=== PATIENT | male | born 1955 | race Caucasian/White ===

== ENCOUNTER 2021-10-02 21:59 | Emergency (ER) | payer OTHER ==
[2021-10-02] MEDS ORDERED: BABY ASPIRIN 81 MG CHEW ONE (22:27)
[2021-10-02] MEDS: BABY ASPIRIN 81 MG CHEW PO ONE (22:28)
--- NOTE | 2021-10-02 22:32 | ERPHSYRPT ---
- History of Present Illness Source: patient Exam Limitations: other Patient Subjective Stated Complaint: pt states he has been feeling like his heart was beating very fast. states when family checked it at home, it was 130. states he did get some bad news today and states could be from anxiety. Triage Nursing Assessment: pt alert and oriented, answers questions approp. pt ambulates into room without diff. steady gait noted. skin warm and dry. respirations nonlabored. lungs cta bilat. heart rate 80 on monitor with occasional pac's noted. Physician History: 65 yo wm w h/o CHF/HTN/Hyperlipidemia/1ppd smoker presents w tachycardia/mid-sternal chest pressure beginning at 19:00. Pt is pain free at presents, and at max was 2-3. It did not radiate. He states that he was mildly dyspneic wo N/V/diaphoresis. Pt has a mild cough wo coryza/fever. He saw Dr. Ford on 09/29/21 and was started on steroids. Timing/Duration: other (19:00) Quality: pressure Location: substernal Chest Pain Radiation: no radiation Severity of Pain-Max: mild Severity of Pain-Current: none Modifying Factors: Improves With: nothing Nitro Today/Relief: no nitro taken today Aspirin Treatment Today: no aspirin today Associated Symptoms: shortness of breath, cough, No nausea, No vomiting, No abdominal pain, No heartburn, No diaphoresis, No chills, No chest pain, No fever, No headaches, No loss of appetite, No malaise, No rash, No syncope, No seizure, No weakness Allergies/Adverse Reactions: No Known Drug Allergies Allergy (Verified 04/22/15 15:30) Home Medications: Amlodipine/Benzapril 5/10 mg [Lotrel 5/10 MG] 1 cap PO HS 10/02/21 [History] Atorvastatin Calcium [Lipitor 20MG Tablet] 20 mg PO HS 10/02/21 [History] Carvedilol [Coreg] 25 mg PO HS 10/02/21 [History] Hx Tetanus, Diphtheria Vaccination/Date Given: Yes Hx Influenza Vaccination/Date Given: Yes Hx Pneumococcal Vaccination/Date Given: No Immunizations Up to Date: Yes Travel Risk - International Travel Have you traveled outside of the country in past 3 weeks: No - Coronavirus Screening Are you exhibiting any of the following symptoms?: No Close contact with a COVID-19 positive Pt in past 14-21 Days: No - Vaccine Status Have you recieved a Covid-19 vaccination: Yes [employer]: [employer] - Vaccination Dates Date of 2cond Vaccination (if applicable): 2020 - Review of Systems Constitutional: No Symptoms Eyes: No Symptoms Ears, Nose, & Throat: No Symptoms Respiratory: No Symptoms, Cough, Dyspnea Cardiac: No Symptoms, Chest Pain, Palpitations Abdominal/Gastrointestinal: No Symptoms Genitourinary Symptoms: No Symptoms Musculoskeletal: No Symptoms Skin: No Symptoms Neurological: No Symptoms Psychological: No Symptoms Endocrine: No Symptoms Hematologic/Lymphatic: No Symptoms Immunological/Allergic: No Symptoms - Past Medical History Pertinent Past Medical History: Yes Neurological History: No Pertinent History, TIA ENT History: No Pertinent History Cardiac History: High Cholesterol, Hypertension Respiratory History: COPD Endocrine Medical History: No Pertinent History Musculoskeletal History: No Pertinent History GI Medical History: Diverticulitis, Other History: No Pertinent History Psycho-Social History: No Pertinent History Male Reproductive Disorders: No Pertinent History Other Medical History: DIVERTICULITIS - Past Surgical History Past Surgical History: Yes Neuro Surgical History: No Pertinent History Cardiac: No Pertinent History Respiratory: No Pertinent History Gastrointestinal: Appendectomy, Cholecystectomy Genitourinary: No Pertinent History Musculoskeletal: Orthopedic Surgery Male Surgical History: No Pertinent History Other Surgical History: LEFT KNEE SURGERY - Social History Smoking Status: Current every day smoker How long have you smoked: 50 yrs Exposure to second hand smoke: Yes Drug Use: none Patient Lives Alone: No Significant Family History: no pertinent family hx - Nursing Vital Signs Nursing Vital Signs: Initial Vital Signs Temperature 97.3 F 10/02/21 22:01 Pulse Rate 76 10/02/21 22:01 Respiratory Rate 18 10/02/21 22:01 Blood Pressure 172/110 10/02/21 22:01 O2 Sat by Pulse Oximetry 99 10/02/21 22:01 Pain Scale Pain Intensity 0 Hypertensive - Physical Exam General Appearance: no apparent distress Eye Exam: PERRL/EOMI, eyes nml inspection Ears, Nose, Throat Exam: normal ENT inspection, TMs normal, pharynx normal, moist mucous membranes Neck Exam: normal inspection, non-tender Respiratory Exam: airway intact, wheezing (Scattered) Cardiovascular Exam: regular rate/rhythm, normal heart sounds, normal peripheral pulses, capillary refill <2 sec, No murmur Gastrointestinal/Abdomen Exam: soft, normal bowel sounds, No tenderness Back Exam: normal inspection, normal range of motion Extremity Exam: normal inspection, normal range of motion Neurologic Exam: alert, oriented x 3, cooperative, personal companion II-XII nml as tested, normal mood/affect, sensation nml Skin Exam: normal color, warm, dry Lymphatic Exam: No adenopathy SpO2 Interpretation: normal SpO2: 99 O2 Delivery: Room Air - Course Nursing assessment & vital signs reviewed: Yes EKG Interpreted by Me: RATE (NSR/R73/Normal QT-QTc/No acute ST changes/Possible incomplete RBBB/EKG#2 sinus shakira/Prolonged QT/IRBBB/No acute ST changes) - Radiology Exams Chest X-ray Interpretation: Interpreted by me (COPD, nothing acute) Ordered Tests: Active Orders 24 hr Category Date Time Status Dumpcart Driver STAT Care 10/02/21 22:27 Completed EKG-ER Only STAT Care 10/02/21 22:24 Completed EKG-ER Only STAT Care 10/03/21 04:04 Completed IV Insertion STAT Care 10/02/21 22:24 Completed CHEST 1 VIEW (PORTABLE) Stat Exams 10/02/21 22:25 Taken CBC W DIFF Stat Lab 10/02/21 22:30 Completed CMP Stat Lab 10/02/21 22:30 Completed Manual Differential NC Stat Lab 10/02/21 22:30 Completed NT PRO BNP Stat Lab 10/02/21 22:30 Completed PROTIME WITH INR Stat Lab 10/02/21 22:30 Completed PTT Stat Lab 10/02/21 22:30 Completed TROPONIN Q3H Lab 10/02/21 22:30 Completed TROPONIN Q3H Lab 10/03/21 00:57 Completed TROPONIN Q3H Lab 10/03/21 02:46 Completed TROPONIN Q3H Lab 10/03/21 07:30 Completed TROPONIN Q3H Lab 10/03/21 10:30 Ordered Respiratory Therapy Assessment DAILY RT 10/02/21 22:39 Completed Medication Summary Discontinued Medications Generic Name Dose Route Start Last Admin Trade Name Freq PRN Reason Stop Dose Admin Albuterol/Ipratropium 3 ml 10/02/21 22:26 10/02/21 22:40 Ipratropium/Albuterol Sulfate 3 Ml Ampul.Neb IH 10/02/21 22:27 3 ml STAT ONE Administration Albuterol/Ipratropium Confirm 10/02/21 22:38 Ipratropium/Albuterol Sulfate 3 Ml Ampul.Neb Administered 10/02/21 22:39 Dose 3 ml IH .STK-MED ONE Aspirin 324 mg 10/02/21 22:27 10/02/21 22:28 Aspirin 81 Mg Tab.Chew PO 10/02/21 22:28 324 mg STAT ONE Administration Aspirin Confirm 10/02/21 22:27 Aspirin 81 Mg Tab.Chew Administered 10/02/21 22:28 Dose 324 mg .ROUTE .STK-MED ONE Lab/Rad Data: Laboratory Result Diagrams 10/02/21 22:30 10/02/21 22:30 Laboratory Results 10/03/21 10/03/21 10/03/21 Range/Units 07:30 02:46 00:57 WBC (4.0-10.5) K/mm3 RBC (4.1-5.6) M/mm3 Hgb (12.5-18.0) gm/dl Hct (42-50) % MCV (78-100) fl MCH (26-32) pg MCHC (32-36) g/dl RDW (11.5-14.0) % Plt Count (150-450) K/mm3 MPV (7.5-11.0) fl Segmented Neutrophils (36.-66.) % Lymphocytes (Manual) (24-44) % Monocytes (Manual) (0.0-12.0) % Eosinophils (Manual) (0.00-3.0) % Platelet Estimate (NORMAL) RBC Morphology PT (9.4-12.5) SECONDS INR (0.8-3.0) APTT (25.1-36.5) SECONDS Sodium (137-145) mmol/L Potassium (3.5-5.1) mmol/L Chloride (98-107) mmol/L Carbon Dioxide (22-30) mmol/L Anion Gap (5-15) MEQ/L BUN (9-20) mg/dL Creatinine (0.66-1.25) mg/dL Estimated GFR ML/MIN Glucose (74-106) mg/dL Calcium (8.4-10.2) mg/dL Total Bilirubin (0.2-1.3) mg/dL AST (17-59) U/L ALT (0-50) U/L Alkaline Phosphatase (38-126) U/L Troponin I 0.035 H 0.036 H* 0.033 (0.000-0.034) ng/mL NT-Pro-B Natriuret Pep (0-900) pg/mL Serum Total Protein (6.3-8.2) g/dL Albumin (3.5-5.0) g/dL Influenza Type A Ag (NEGATIVE) Influenza Type B Ag (NEGATIVE) RSV (PCR) (Negative) SARS-CoV-2 (PCR) (NEGATIVE) 10/02/21 10/02/21 10/02/21 Range/Units 23:08 22:30 22:30 WBC (4.0-10.5) K/mm3 RBC (4.1-5.6) M/mm3 Hgb (12.5-18.0) gm/dl Hct (42-50) % MCV (78-100) fl MCH (26-32) pg MCHC (32-36) g/dl RDW (11.5-14.0) % Plt Count (150-450) K/mm3 MPV (7.5-11.0) fl Segmented Neutrophils (36.-66.) % Lymphocytes (Manual) (24-44) % Monocytes (Manual) (0.0-12.0) % Eosinophils (Manual) (0.00-3.0) % Platelet Estimate (NORMAL) RBC Morphology PT 12.9 H (9.4-12.5) SECONDS INR 1.09 (0.8-3.0) APTT 31.3 (25.1-36.5) SECONDS Sodium (137-145) mmol/L Potassium (3.5-5.1) mmol/L Chloride (98-107) mmol/L Carbon Dioxide (22-30) mmol/L Anion Gap (5-15) MEQ/L BUN (9-20) mg/dL Creatinine (0.66-1.25) mg/dL Estimated GFR ML/MIN Glucose (74-106) mg/dL Calcium (8.4-10.2) mg/dL Total Bilirubin (0.2-1.3) mg/dL AST (17-59) U/L ALT (0-50) U/L Alkaline Phosphatase (38-126) U/L Troponin I 0.018 (0.000-0.034) ng/mL NT-Pro-B Natriuret Pep (0-900) pg/mL Serum Total Protein (6.3-8.2) g/dL Albumin (3.5-5.0) g/dL Influenza Type A Ag NEGATIVE (NEGATIVE) Influenza Type B Ag NEGATIVE (NEGATIVE) RSV (PCR) NEGATIVE (Negative) SARS-CoV-2 (PCR) NEGATIVE (NEGATIVE) 10/02/21 10/02/21 Range/Units 22:30 22:30 WBC 12.8 H (4.0-10.5) K/mm3 RBC 5.20 (4.1-5.6) M/mm3 Hgb 14.6 (12.5-18.0) gm/dl Hct 44.2 (42-50) % MCV 85.0 (78-100) fl MCH 28.1 (26-32) pg MCHC 33.0 (32-36) g/dl RDW 16.1 H (11.5-14.0) % Plt Count 319 (150-450) K/mm3 MPV 9.6 (7.5-11.0) fl Segmented Neutrophils 68 H (36.-66.) % Lymphocytes (Manual) 26 (24-44) % Monocytes (Manual) 5 (0.0-12.0) % Eosinophils (Manual) 1 (0.00-3.0) % Platelet Estimate NORMAL (NORMAL) RBC Morphology NORMAL PT (9.4-12.5) SECONDS INR (0.8-3.0) APTT (25.1-36.5) SECONDS Sodium 137 (137-145) mmol/L Potassium 3.7 (3.5-5.1) mmol/L Chloride 99 (98-107) mmol/L Carbon Dioxide 28 (22-30) mmol/L Anion Gap 13.4 (5-15) MEQ/L BUN 27 H (9-20) mg/dL Creatinine 0.85 (0.66-1.25) mg/dL Estimated GFR > 60.0 ML/MIN Glucose 147 H (74-106) mg/dL Calcium 9.1 (8.4-10.2) mg/dL Total Bilirubin 0.70 (0.2-1.3) mg/dL AST 26 (17-59) U/L ALT 23 (0-50) U/L Alkaline Phosphatase 122 (38-126) U/L Troponin I (0.000-0.034) ng/mL NT-Pro-B Natriuret Pep 535 (0-900) pg/mL Serum Total Protein 7.6 (6.3-8.2) g/dL Albumin 4.3 (3.5-5.0) g/dL Influenza Type A Ag (NEGATIVE) Influenza Type B Ag (NEGATIVE) RSV (PCR) (Negative) SARS-CoV-2 (PCR) (NEGATIVE) - Progress Progress Note: 10/03/21 05:26 Aspirin 324mg po 10/03/21 05:27 Duoneb x1 Pt wo chest pain/dyspnea/EKG changes during stay Discussed w pt/ about observation admit due to marginally elevated troponin. Pt did not want to be admitted at this time and was going to leave AMA, so that he could visit grandson in [place]. Since pt would most likely leave AMA, I persuaded pt to allow a repeat troponin which actually decreased. Since troponin decreasing, pt wanted to be discharged w cardiology f/u. Pt had no chest pain/dyspnea/malignant arrythmias during stay. 10/03/21 05:47 10/03/21 06:00 Counseled pt/family regarding: lab results, diagnosis, need for follow-up, rad results - Departure Departure Disposition: Home Clinical Impression: Palpitations, Elevated troponin, Viral URI Condition: Stable Critical Care Time: No Referrals: LOCO FORD MD [Primary Care Provider] - Follow up/PCP as directed Instructions: Tachycardia (DC) Additional Instructions: Follow up with your sharepoint engineer in 1-2 days Return to ER for chest pain or shortness of breath
[2021-10-02] MEDS ORDERED: DUONEB 0.5-3 MG/3 ml Neb IH ONE (22:38)
[2021-10-02] MEDS: DUONEB 0.5-3 MG/3 ml Neb IH ONE (22:40)
[2021-10-02 22:41] LABS: Hematocrit 44.2 % (42-50); Hemoglobin 14.6 gm/dl (12.5-18.0); Mean Corpuscular Hemoglobin 28.1 pg (26-32); Mean Platelet Volume 9.6 fl (7.5-11.0); Platelet Count 319 K/mm3 (150-450); Red Cell Distribution Width 16.1 % (11.5-14.0); White Blood Count 12.8 K/mm3 (4.0-10.5)
[2021-10-02 22:55] LABS: INR 1.09 (0.8-3.0); PROTIME 12.9 SECONDS (9.4-12.5)
[2021-10-02 22:58] LABS: PTT 31.3 SECONDS (25.1-36.5)
[2021-10-02 23:09] LABS: ALBUMIN 4.3 g/dL (3.5-5.0); ALKALINE PHOSPHATASE 122 U/L (38-126); ANION GAP 13.4 MEQ/L (5-15); BLOOD UREA NITROGEN 27 mg/dL (9-20); CHLORIDE 99 mmol/L (98-107); Calcium 9.1 mg/dL (8.4-10.2); Carbon Dioxide 28 mmol/L (22-30); Creatinine 1 0.85 mg/dL (0.66-1.25); EST GLOMERULAR FILTRATION RATE > 60.0 ML/MIN; Glucose 147 mg/dL (74-106); NT PRO BNP 535 pg/mL (0-900); Potassium 3.7 mmol/L (3.5-5.1); SGOT/AST 26 U/L (17-59); SGPT/ALT 23 U/L (0-50); SODIUM 137 mmol/L (137-145); Total Protein 7.6 g/dL (6.3-8.2)
[2021-10-02 23:47] LABS: INFLUENZA A NEGATIVE (NEGATIVE); INFLUENZA B NEGATIVE (NEGATIVE); RESPIRATORY SYNCTIAL VIRUS NEGATIVE (Negative); SARS-CoV-2 Xpert Express NEGATIVE (NEGATIVE)
[2021-10-03 01:34] LABS: Eosinophil 1 % (0.00-3.0); Lymphocytes 26 % (24-44); Monocyte 5 % (0.0-12.0); Total Cells Counted 100
[2021-10-03 01:35] LABS: Platelet Estimate NORMAL (NORMAL)
[2021-10-03 05:07] VITALS: BP 147/79
[2021-10-03 05:36] VITALS: PULSE 58
[2021-10-03 05:54] VITALS: O2SAT 99
--- NOTE | 2021-10-04 08:39 | XRAY ---
Exam: One view portable chest film from 11:03 PM on 10/02/2021. 2 images were obtained. Comparison: Two-view chest from 08/13/2018. Indication: Chest pain. Findings: The lung roldan are again mildly hyperinflated. The transverse heart size is normal. Mediastinal contours appear unremarkable. I again note a few incidental bilateral tiny calcified granulomas. There are a couple small granulomatous calcifications at the inferior margin of the right hilum. No air space infiltrates, vascular congestion, or pleural effusion is seen. There is no pneumothorax. Degenerative changes are seen within the lower two thirds of the thoracic spine. Impression: 1. I again note mild hyperinflation of the lungs representing no significant change. Correlate clinically regarding COPD. 2. Some scattered bilateral granulomatous calcifications are seen. No acute changes are seen.
== END 2021-10-03 05:43 | disposition home or self-care (01) ==
LOC: ED 21:59
DX: J06.9 Acute upper respiratory infection, unspecified (principal); R77.8 Other specified abnormalities of plasma proteins; R00.2 Palpitations; R07.9 Chest pain, unspecified; R05.9 Cough, unspecified; R06.02 Shortness of breath; I11.0 Hypertensive heart disease with heart failure; I50.9 Heart failure, unspecified; E78.5 Hyperlipidemia, unspecified; J44.9 Chronic obstructive pulmonary disease, unspecified; Z72.0 Tobacco use; Z79.899 Other long term (current) drug therapy
CPT/HCPCS: 0241U; 36000; 36415; 71045; 80053; 83880; 84484; 85025; 85610; 85730; 93005; 93041; 94640; 99284; A9270-GY

== ENCOUNTER 2024-07-13 10:26 | Observation (INO) | payer MEDICARE ==
--- NOTE | 2024-07-13 11:09 | ERPHSYRPT ---
- History of Present Illness Time Seen by Provider: 07/13/24 10:45 Source: patient Exam Limitations: no limitations Patient Subjective Stated Complaint: pt here for sob,cough, headache, and possible fever since sunday evening, Triage Nursing Assessment: pt alert, walked in, resp easy, has productive cough, skin w/d/p.hands cold which pt states is normal for him, moves all ext well, chest clear Physician History: 68-year-old male current smoker history of COPD presents to our ED for evaluation of cough nasal congestion shortness of breath. Patient believes he has "RSV". Symptoms have been ongoing since Sunday, 2 days. No chest pain. No nausea vomiting or diaphoresis. Symptoms are constant. Symptoms are moderate in intensity. Symptoms somewhat worse with exertion. Symptoms improved with rest. Patient otherwise feels well. No associated fevers. No rash. Patient voices no other complaints or concerns at this time. Portions of this note were created with voice recognition technology. There may be grammatical, spelling, punctuation or sound alike errors Timing/Duration: day(s) (2 days) Severity: moderate Modifying Factors: Improves With: nothing Associated Symptoms: denies symptoms Allergies/Adverse Reactions: No Known Drug Allergies Allergy (Verified 07/13/24 10:33) Home Medications: Amlodipine/Benzapril 5/10 mg [Lotrel 5/10 MG] 1 cap PO HS 10/02/21 [History] Atorvastatin Calcium [Lipitor 20MG Tablet] 20 mg PO HS 10/02/21 [History] carvediloL [Coreg] 25 mg PO HS 10/02/21 [History] Hx Tetanus, Diphtheria Vaccination/Date Given: Yes Hx Influenza Vaccination/Date Given: Yes Hx Pneumococcal Vaccination/Date Given: No Immunizations Up to Date: Yes Travel Risk - International Travel Have you traveled outside of the country in past 3 weeks: No - Emerging Infectious Disease Are you exhibiting symptoms associated with any current EIDs: Yes Symptoms: Cough: New Onset, Shortness of Breath - Review of Systems Constitutional: No Symptoms, No Fever, No Chills Eyes: No Symptoms Ears, Nose, & Throat: No Symptoms Respiratory: No Symptoms, No Cough, No Dyspnea Cardiac: No Symptoms, No Chest Pain, No Edema, No Syncope Abdominal/Gastrointestinal: No Symptoms, No Abdominal Pain, No Nausea, No Vomiting, No Diarrhea Genitourinary Symptoms: No Symptoms, No Dysuria Musculoskeletal: No Symptoms, No Back Pain, No Neck Pain Skin: No Symptoms, No Rash Neurological: No Symptoms, No Dizziness, No Focal Weakness, No Sensory Changes Psychological: No Symptoms Endocrine: No Symptoms Hematologic/Lymphatic: No Symptoms Immunological/Allergic: No Symptoms All Other Systems: Reviewed and Negative - Past Medical History Pertinent Past Medical History: Yes Neurological History: No Pertinent History, TIA ENT History: No Pertinent History Cardiac History: High Cholesterol, Hypertension Respiratory History: COPD Endocrine Medical History: No Pertinent History Musculoskeletal History: No Pertinent History GI Medical History: Diverticulitis, Other History: No Pertinent History Psycho-Social History: No Pertinent History Male Reproductive Disorders: No Pertinent History Other Medical History: DIVERTICULITIS - Past Surgical History Past Surgical History: Yes Neuro Surgical History: No Pertinent History Cardiac: No Pertinent History Respiratory: No Pertinent History Gastrointestinal: Appendectomy, Cholecystectomy Genitourinary: No Pertinent History Musculoskeletal: Orthopedic Surgery Male Surgical History: No Pertinent History Other Surgical History: LEFT KNEE SURGERY Significant Family History: no pertinent family hx - Social History Smoking Status: Current every day smoker How long have you smoked: 50 yrs Exposure to second hand smoke: Yes Drug Use: none - Social Determinants of Health Will the patient participate in the screening: Declined to provide - Nursing Vital Signs Nursing Vital Signs: Initial Vital Signs Temperature 98.2 F 07/13/24 10:34 Pulse Rate 72 07/13/24 10:34 Respiratory Rate 18 07/13/24 10:34 Blood Pressure 157/60 07/13/24 10:34 O2 Sat by Pulse Oximetry 93 L 07/13/24 10:34 Pain Scale Pain Intensity 2 - Physical Exam General Appearance: no apparent distress, alert Eye Exam: PERRL/EOMI, eyes nml inspection Ears, Nose, Throat Exam: normal ENT inspection, moist mucous membranes Neck Exam: normal inspection, non-tender, supple, full range of motion Respiratory Exam: normal breath sounds, airway intact, diminished breath sounds, rhonchi, wheezing, No respiratory distress Cardiovascular Exam: regular rate/rhythm, normal heart sounds Gastrointestinal/Abdomen Exam: soft, normal bowel sounds, No tenderness, No mass Back Exam: normal inspection, normal range of motion, No CVA tenderness, No chikis tebral tenderness Extremity Exam: normal inspection, normal range of motion, pelvis stable Neurologic Exam: alert, oriented x 3, cooperative, normal mood/affect, nml cerebellar function, nml station & gait, sensation nml, No motor deficits Skin Exam: normal color, warm, dry, No rash Lymphatic Exam: No adenopathy SpO2 Interpretation: normal SpO2: 97 O2 Delivery: Room Air - Course Nursing assessment & vital signs reviewed: Yes EKG Interpreted by Me: RATE (78), NORMAL AXIS, NORMAL INTERVALS, NORMAL QRS Ordered Tests: Active Orders 24 hr Category Date Time Status Engine Manager STAT Care 07/13/24 11:18 Active EKG-ER Only STAT Care 07/13/24 11:17 Active Pulse Oximetry (ED) STAT Care 07/13/24 11:17 Active CHEST 1 VIEW (PORTABLE) Stat Exams 07/13/24 12:21 Completed BLOOD CULTURE Stat Lab 07/13/24 12:10 Received CBC W DIFF Stat Lab 07/13/24 11:50 Completed CMP Stat Lab 07/13/24 11:50 Completed TROPONIN Q4H Lab 07/13/24 11:50 Completed TROPONIN Q4H Lab 07/13/24 13:20 Completed TROPONIN Q4H Lab 07/13/24 19:30 Ordered Respiratory Therapy Assessment DAILY RT 07/13/24 11:30 Active Transfer Order Routine Transfer 07/13/24 Ordered Medication Summary Discontinued Medications Generic Name Dose Route Start Last Admin Trade Name Freq PRN Reason Stop Dose Admin Albuterol/Ipratropium 3 ml 07/13/24 11:17 07/13/24 11:23 Ipratropium/Albuterol Sulfate 3 Ml Ampul.Neb IH 07/13/24 11:18 3 ml STAT ONE Administration Albuterol/Ipratropium Confirm 07/13/24 11:22 Ipratropium/Albuterol Sulfate 3 Ml Ampul.Neb Administered 07/13/24 11:23 Dose 3 ml IH .STK-MED ONE Ceftriaxone Sodium 2 gm in 100 mls @ 200 mls/hr 07/13/24 13:11 07/13/24 13:15 Rocephin 2 Gm/100 Ml Nacl IV 07/13/24 13:40 200 mls/hr STAT ONE Administration Azithromycin 500 mg in 250 mls @ 250 mls/hr 07/13/24 13:11 07/13/24 13:55 Zithromax 500 Mg/ 250 Ml Nacl Premix IV 07/13/24 14:10 250 mls/hr STAT STA Administration Ceftriaxone Sodium Confirm 07/13/24 13:14 Rocephin 2 Gm/100 Ml Nacl Administered 07/13/24 13:15 Dose 2 gm in 100 mls @ ud IV .STK-MED ONE Azithromycin Confirm 07/13/24 13:54 Zithromax 500 Mg/ 250 Ml Nacl Premix Administered 07/13/24 13:55 Dose 500 mg in 250 mls @ ud IV .STK-MED ONE Prednisone 60 mg 07/13/24 11:17 07/13/24 11:24 Prednisone 20 Mg Tablet PO 07/13/24 11:18 60 mg STAT ONE Administration Prednisone Confirm 07/13/24 11:22 Prednisone 20 Mg Tablet Administered 07/13/24 11:23 Dose 60 mg .ROUTE .STK-MED ONE Lab/Rad Data: Laboratory Result Diagrams 07/13/24 11:50 07/13/24 11:50 Laboratory Results 07/13/24 07/13/24 07/13/24 Range/Units 13:20 12:12 11:50 WBC (4.23-9.07) x10^3/uL RBC (4.63-6.08) x10^6/uL Hgb (13.7-17.5) g/dL Hct (40.1-51.0) % MCV (79.0-92.2) fL MCH (25.7-32.2) pg MCHC (32.3-36.5) g/dL RDW (11.6-14.4) % Plt Count (163-337) x10^3/uL MPV (9.4-12.4) fL Gran % (34.0-67.9) % Immature Gran % (Auto) (0.001-0.429) % Nucleat RBC Rel Count (0.00-0.2) % Eos # (Auto) (0.04-0.54) x10^3/uL Immature Gran # (Auto) (0.001-0.031) x10^3u/L Absolute Lymphs (auto) (1.32-3.57) x10^3/uL Absolute Monos (auto) (0.30-0.82) x10^3/uL Absolute Nucleated RBC (0.00-0.012) x10^3u/L Lymphocytes % (21.8-53.1) % Monocytes % (5.3-12.2) % Eosinophils % (0.8-7.0) % Basophils % (0.2-1.2) % Absolute Granulocytes (1.78-5.38) x10^3/uL Basophils # (0.01-0.08) x10^3/uL Sodium (135-145) mmol/L Potassium (3.5-5.1) mmol/L Chloride (98-107) mmol/L Carbon Dioxide (22-30) mmol/L Anion Gap (5-15) MEQ/L BUN (9-20) mg/dL Creatinine (0.66-1.25) mg/dL Estimated GFR ML/MIN Glucose (74-106) mg/dL Calcium (8.4-10.2) mg/dL Total Bilirubin (0.2-1.3) mg/dL AST (17-59) U/L ALT (0-50) U/L Alkaline Phosphatase (38-126) U/L Troponin I 0.019 0.018 (0.000-0.033) ng/mL Serum Total Protein (6.3-8.2) g/dL Albumin (3.5-5.0) g/dL Influenza Type A Ag POSITIVE A (NEGATIVE) Influenza Type B Ag NEGATIVE (NEGATIVE) RSV (PCR) NEGATIVE (NEGATIVE) SARS-CoV-2 (PCR) NEGATIVE (NEGATIVE) 07/13/24 07/13/24 Range/Units 11:50 11:50 WBC 4.4 (4.23-9.07) x10^3/uL RBC 4.43 L (4.63-6.08) x10^6/uL Hgb 13.9 (13.7-17.5) g/dL Hct 40.8 (40.1-51.0) % MCV 92.1 (79.0-92.2) fL MCH 31.4 (25.7-32.2) pg MCHC 34.1 (32.3-36.5) g/dL RDW 13.9 (11.6-14.4) % Plt Count 123 L (163-337) x10^3/uL MPV 10.1 (9.4-12.4) fL Gran % 62.4 (34.0-67.9) % Immature Gran % (Auto) 1.1 H (0.001-0.429) % Nucleat RBC Rel Count 0.0 (0.00-0.2) % Eos # (Auto) 0.10 (0.04-0.54) x10^3/uL Immature Gran # (Auto) 0.05 H (0.001-0.031) x10^3u/L Absolute Lymphs (auto) 0.95 L (1.32-3.57) x10^3/uL Absolute Monos (auto) 0.49 (0.30-0.82) x10^3/uL Absolute Nucleated RBC 0.00 (0.00-0.012) x10^3u/L Lymphocytes % 21.8 (21.8-53.1) % Monocytes % 11.3 (5.3-12.2) % Eosinophils % 2.3 (0.8-7.0) % Basophils % 1.1 (0.2-1.2) % Absolute Granulocytes 2.71 (1.78-5.38) x10^3/uL Basophils # 0.05 (0.01-0.08) x10^3/uL Sodium 142 (135-145) mmol/L Potassium 4.1 (3.5-5.1) mmol/L Chloride 104 (98-107) mmol/L Carbon Dioxide 26 (22-30) mmol/L Anion Gap 16.0 H (5-15) MEQ/L BUN 24 H (9-20) mg/dL Creatinine 1.12 (0.66-1.25) mg/dL Estimated GFR 72.0 ML/MIN Glucose 100 (74-106) mg/dL Calcium 9.0 (8.4-10.2) mg/dL Total Bilirubin 0.70 (0.2-1.3) mg/dL AST 36 (17-59) U/L ALT 35 (0-50) U/L Alkaline Phosphatase 105 (38-126) U/L Troponin I (0.000-0.033) ng/mL Serum Total Protein 7.0 (6.3-8.2) g/dL Albumin 4.5 (3.5-5.0) g/dL Influenza Type A Ag (NEGATIVE) Influenza Type B Ag (NEGATIVE) RSV (PCR) (NEGATIVE) SARS-CoV-2 (PCR) (NEGATIVE) - Progress Progress: improved Progress Note: 68-year-old male smoker history of COPD presents to our ED with cough and shortness of breath. Physical exam reveals diminished coarse breath sounds with wheezing. Patient treated with Solu-Medrol azithromycin and Rocephin. Blood cultures obtained. Chest x-ray reveals a right upper lobe pneumonia. TB precaution implemented. Patient ambulated throughout our ED. O2 sat dropped to 88%. Troponin is 0.018 repeat 0.019. Renal function is within normal limits. Patient denies chest pain. Patient will be admitted for further evaluation and treatment. Plan of care discussed with patient. He agrees to admission at [facility] for further evaluation and treatment. Case discussed with who accepts admission to observation at 3:16 PM. Portions of this note were created with voice recognition technology. There may be grammatical, spelling, punctuation or sound alike errors Complexity of problem addressed is moderate acute complicated. No critical care time. Complexity of data reviewed and analyzed is extensive. Test ordered test reviewed results analyzed and correlated clinically with history and physical exam. Risk of complication and or risk of morbidity/mortality of patient management is high. Patient requires hospitalization for further evaluation and treatment. Vital stable. Time spent admit patient is approximately 15 minutes. Plan of care established for shared decision making. No social determinants of health present to impede follow-up. Portions of this note were created with voice recognition technology. There may be grammatical, spelling, punctuation or sound alike errors 07/13/24 15:18 Counseled pt/family regarding: lab results, diagnosis, need for follow-up, rad results - Departure Departure Disposition: Home Clinical Impression: COPD exacerbation, Cough, Pneumonia, Influenza A, Hypoxia Condition: Stable Critical Care Time: No Referrals: LOCO FORD MD [Primary Care Provider] - Follow up/PCP as directed Instructions: Chronic Obstructive Pulmonary Disease Additional Instructions: Discharge/Care Plan NICKFREDERICK GAINES was seen on 07/13/24 in the Emergency Room. The patient was counseled regarding Diagnosis,Lab results, Imaging studies, need for follow up and when to return to the Emergency Room. Prescriptions given: Discharge Note I have spoken with the patient and/or caregivers. I have explained the patient's condition, diagnosis and treatment plan based on the information available to me at this time. I have answered the patient's and/or caregiver's questions and addressed any concerns. The patient and/or caregivers have as good understanding of the patient's diagnosis, condition and treatment plan as can be expected at this point. The vital signs have been stable. The patient's condition is stable and appropriate for discharge from the emergency department. The patient will pursue further outpatient evaluation with the primary care physician or other designated or consulting physician as outlined in the discharge instructions. The patient and/or caregivers are agreeable to this plan of care and follow-up instructions have been explained in detail. The patient and/or caregivers have received these instruction. The patient/and or caregivers are aware that any significant change in condition or worsening of symptoms should prompt an immediate return to this or the closest emergency department or call 911.
[2024-07-13] MEDS ORDERED: DELTASONE 20 MG ONE (11:22)
[2024-07-13] MEDS ORDERED: DUONEB 0.5-3 MG/3 ml Neb IH ONE (11:22)
[2024-07-13] MEDS: DUONEB 0.5-3 MG/3 ml Neb IH ONE (11:23)
[2024-07-13] MEDS: DELTASONE 20 MG PO ONE (11:24)
[2024-07-13 12:19] LABS: Absolute Neutrophil Ct (ANC) 2.71 x10^3/uL (1.78-5.38); BASOPHIL % 1.1 % (0.2-1.2); Basophil (Absolute #) 0.05 x10^3/uL (0.01-0.08); Eosinophil % 2.3 % (0.8-7.0); Hematocrit 40.8 % (40.1-51.0); Hemoglobin 13.9 g/dL (13.7-17.5); IMMATURE GRAN # 0.05 x10^3u/L (0.001-0.031); IMMATURE GRAN % 1.1 % (0.001-0.429); Lymphocyte (Absolute #) 0.95 x10^3/uL (1.32-3.57); Lymphocytes % 21.8 % (21.8-53.1); Mean Cell Volume 92.1 fL (79.0-92.2); Mean Corpuscular Hemoglobin 31.4 pg (25.7-32.2); Mean Corpuscular Hgb Concent. 34.1 g/dL (32.3-36.5); Mean Platelet Volume 10.1 fL (9.4-12.4); Monocyte (Absolute #) 0.49 x10^3/uL (0.30-0.82); Monocytes % 11.3 % (5.3-12.2); Neutrophil % 62.4 % (34.0-67.9); Platelet Count 123 x10^3/uL (163-337); Red Blood Count 4.43 x10^6/uL (4.63-6.08); Red Cell Distribution Width 13.9 % (11.6-14.4); White Blood Count 4.4 x10^3/uL (4.23-9.07)
[2024-07-13 12:31] LABS: ALBUMIN 4.5 g/dL (3.5-5.0); BILIRUBIN,TOTAL 0.7 mg/dL (0.2-1.3); Creatinine 1 1.12 mg/dL (0.66-1.25); Potassium 4.1 mmol/L (3.5-5.1)
--- NOTE | 2024-07-13 12:55 | XRAY ---
CLINICAL HISTORY: sob COMPARISON: None. TECHNIQUE: X-ray of the chest was done in AP view. FINDINGS: Lung parenchyma: Lungs are hyperinflated, evident by the widening of the diaphragm. Right upper lung zone/ paratracheal patchy airspace opacity. Prominent bilateral bronchovascular markings. No pleural effusion or pleural thickening. Heart and mediastinum: Normal configuration of the mediastinum. The kendall are normal in size and position. The cardiac size is normal. Bones: The bony thorax is unremarkable. Soft tissue: Soft tissues are clear. IMPRESSION: 1. Right upper zone patchy airspace opacity, likely inflammatory, clinical correlation, and further assessment are advised. 2. Hyperinflated lungs with prominent bronchovascular markings. Electronically Signed by: Ezekiel Mathis MD. (07/13/2024 12:51:09 EST)
[2024-07-13 13:05] LABS: INFLUENZA B NEGATIVE (NEGATIVE); RESPIRATORY SYNCTIAL VIRUS NEGATIVE (NEGATIVE); SARS-CoV-2 Xpert Express NEGATIVE (NEGATIVE)
[2024-07-13] MEDS ORDERED: ROCEPHIN 2 GM/100 ML NACL 2 GM/100 ML IVPB IV ONE (13:14)
[2024-07-13] MEDS: ROCEPHIN 2 GM/100 ML NACL 2 GM/100 ML IVPB IV ONE (13:15)
[2024-07-13 13:30] LABS: INFLUENZA A POSITIVE (NEGATIVE)
[2024-07-13] MEDS ORDERED: Zithromax 500 MG/ 250 ML NaCl Premix 500 MG/250 ML IVPB IV ONE (13:54)
[2024-07-13] MEDS: Zithromax 500 MG/ 250 ML NaCl Premix 500 MG/250 ML IVPB IV STA (13:55)
--- NOTE | 2024-07-13 16:25 | PCM.HP ---
History of Present Illness - Chief Complaint Chief Complaint: Influenza A/ Copd exacerbation/pneumonia Date: 07/13/24 History of Present Illness: is a 68 year old male with a pmhx of smoker, hypothroidism, TIA, HLD, HTN, and COPD who presented to the ED 07/13/24 with complaints of a three day history of dyspnea, cough, headache, and fever. Patient states cough is productive with thick white sputum. Subjective fever/chills. Shortness of breath with chest tightness and wheezing - increased with exertion. Upon arrival to ED, vitals stable. EKG NS with no ischemia. Lab findings positive for FluA. CXR demonstrating right upper zone patchy airspace opacity. Patient treated in ED with ceftriaxone/azithromycin/prednisone/ duonebs. Admit for acute respiratory failure with hypoxia secondary to FluA and pneumonia. - Review of Systems Constitutional: Fever, Chills, Weakness Eyes: No Symptoms Ears, Nose, & Throat: Nose Congestion Respiratory: Cough, Short Of Breath, Wheezing Cardiac: No Symptoms Abdominal/Gastrointestinal: No Symptoms Genitourinary Symptoms: No Symptoms Musculoskeletal: No Symptoms Skin: No Symptoms Neurological: No Symptoms Psychological: No Symptoms Endocrine: No Symptoms Hematologic/Lymphatic: No Symptoms Immunological/Allergic: No Symptoms Medications & Allergies Home Medications: Home Medication List Amlodipine/Benzapril 5/10 mg [Lotrel 5/10 MG] 1 cap PO HS 10/02/21 [History Confirmed 10/02/21] Atorvastatin Calcium [Lipitor 20MG Tablet] 20 mg PO HS 10/02/21 [History Confirmed 10/02/21] carvediloL [Coreg] 25 mg PO HS 10/02/21 [History Confirmed 10/02/21] Allergies/Adverse Reactions: Allergies Allergy/AdvReac Type Severity Reaction Status Date / Time No Known Drug Allergies Allergy Verified 07/13/24 10:33 - Past Medical History Past Medical History: Yes Neurological History: No Pertinent History, TIA ENT History: No Pertinent History Cardiac History: High Cholesterol, Hypertension Respiratory History: COPD Endocrine Medical History: No Pertinent History Musculoskelatal History: No Pertinent History GI Medical History: Diverticulitis, Other History: No Pertinent History Pyscho-Social History: No Pertinent History Male Reproductive Disorders: No Pertinent History Comment: DIVERTICULITIS. Hypothyroidism - Past Surgical History Past Surgical History: Yes Neuro Surgical History: No Pertinent History Cardiac History: No Pertinent History Respiratory Surgery: No Pertinent History GI Surgical History: Appendectomy, Cholecystectomy Genitourinary Surgical Hx: No Pertinent History Musculskeletal Surgical Hx: Orthopedic Surgery Male Surgical History: No Pertinent History Other Surgical History: LEFT KNEE SURGERY Significant Family History: heart disease, cancer, hypertension - Social History Smoking Status: Current every day smoker (<1 PPD x 50years) How long have you smoked: 50 yrs Exposure to second hand smoke: Yes Alcohol: Rarely Drug Use: none - Social Determinants of Health Will the patient participate in the screening: Declined to provide - Physical Exam Vital Signs: Vital Signs - 24 hr Temp Pulse Resp BP BP Pulse Ox 07/13/24 16:00 125/76 07/13/24 15:30 78 27 H 128/75 97 07/13/24 15:21 97 07/13/24 15:19 76 22 145/76 96 07/13/24 15:00 81 15 132/85 93 L 07/13/24 14:30 78 22 136/70 94 L 07/13/24 14:19 80 29 H 136/68 95 07/13/24 14:10 77 22 93 L 07/13/24 14:00 77 30 H 07/13/24 13:50 70 30 H 07/13/24 13:40 76 7 L 07/13/24 13:33 76 9 L 07/13/24 13:00 76 29 H 144/65 07/13/24 12:30 76 19 145/77 94 L 07/13/24 12:19 80 24 145/69 96 07/13/24 12:10 81 18 94 L 07/13/24 12:03 79 16 95 07/13/24 11:30 84 18 134/77 100 07/13/24 11:20 97 07/13/24 11:01 144/72 07/13/24 10:41 18 97 07/13/24 10:34 98.2 F 72 18 157/60 157/60 95 General Appearance: no apparent distress Neurologic Exam: alert, oriented x 3, cooperative Eye Exam: PERRL/EOMI Ears, Nose, Throat Exam: normal ENT inspection Neck Exam: normal inspection Respiratory Exam: crackles/rales, wheezing Cardiovascular Exam: regular rate/rhythm, normal heart sounds Gastrointestinal/Abdomen Exam: soft Back Exam: normal inspection Extremity Exam: normal inspection Skin Exam: normal color Results - Labs Lab/Micro Results: Lab Results-Last 24 Hours 07/13/24 07/13/24 07/13/24 Range/Units 11:50 11:50 11:50 WBC 4.4 (4.23-9.07) x10^3/uL RBC 4.43 L (4.63-6.08) x10^6/uL Hgb 13.9 (13.7-17.5) g/dL Hct 40.8 (40.1-51.0) % MCV 92.1 (79.0-92.2) fL MCH 31.4 (25.7-32.2) pg MCHC 34.1 (32.3-36.5) g/dL RDW 13.9 (11.6-14.4) % Plt Count 123 L (163-337) x10^3/uL MPV 10.1 (9.4-12.4) fL Gran % 62.4 (34.0-67.9) % Immature Gran % (Auto) 1.1 H (0.001-0.429) % Nucleat RBC Rel Count 0.0 (0.00-0.2) % Eos # (Auto) 0.10 (0.04-0.54) x10^3/uL Immature Gran # (Auto) 0.05 H (0.001-0.031) x10^3u/L Absolute Lymphs (auto) 0.95 L (1.32-3.57) x10^3/uL Absolute Monos (auto) 0.49 (0.30-0.82) x10^3/uL Absolute Nucleated RBC 0.00 (0.00-0.012) x10^3u/L Lymphocytes % 21.8 (21.8-53.1) % Monocytes % 11.3 (5.3-12.2) % Eosinophils % 2.3 (0.8-7.0) % Basophils % 1.1 (0.2-1.2) % Absolute Granulocytes 2.71 (1.78-5.38) x10^3/uL Basophils # 0.05 (0.01-0.08) x10^3/uL Sodium 142 (135-145) mmol/L Potassium 4.1 (3.5-5.1) mmol/L Chloride 104 (98-107) mmol/L Carbon Dioxide 26 (22-30) mmol/L Anion Gap 16.0 H (5-15) MEQ/L BUN 24 H (9-20) mg/dL Creatinine 1.12 (0.66-1.25) mg/dL Estimated GFR 72.0 ML/MIN Glucose 100 (74-106) mg/dL Calcium 9.0 (8.4-10.2) mg/dL Total Bilirubin 0.70 (0.2-1.3) mg/dL AST 36 (17-59) U/L ALT 35 (0-50) U/L Alkaline Phosphatase 105 (38-126) U/L Troponin I 0.018 (0.000-0.033) ng/mL Serum Total Protein 7.0 (6.3-8.2) g/dL Albumin 4.5 (3.5-5.0) g/dL Influenza Type A Ag (NEGATIVE) Influenza Type B Ag (NEGATIVE) RSV (PCR) (NEGATIVE) SARS-CoV-2 (PCR) (NEGATIVE) 07/13/24 07/13/24 Range/Units 12:12 13:20 WBC (4.23-9.07) x10^3/uL RBC (4.63-6.08) x10^6/uL Hgb (13.7-17.5) g/dL Hct (40.1-51.0) % MCV (79.0-92.2) fL MCH (25.7-32.2) pg MCHC (32.3-36.5) g/dL RDW (11.6-14.4) % Plt Count (163-337) x10^3/uL MPV (9.4-12.4) fL Gran % (34.0-67.9) % Immature Gran % (Auto) (0.001-0.429) % Nucleat RBC Rel Count (0.00-0.2) % Eos # (Auto) (0.04-0.54) x10^3/uL Immature Gran # (Auto) (0.001-0.031) x10^3u/L Absolute Lymphs (auto) (1.32-3.57) x10^3/uL Absolute Monos (auto) (0.30-0.82) x10^3/uL Absolute Nucleated RBC (0.00-0.012) x10^3u/L Lymphocytes % (21.8-53.1) % Monocytes % (5.3-12.2) % Eosinophils % (0.8-7.0) % Basophils % (0.2-1.2) % Absolute Granulocytes (1.78-5.38) x10^3/uL Basophils # (0.01-0.08) x10^3/uL Sodium (135-145) mmol/L Potassium (3.5-5.1) mmol/L Chloride (98-107) mmol/L Carbon Dioxide (22-30) mmol/L Anion Gap (5-15) MEQ/L BUN (9-20) mg/dL Creatinine (0.66-1.25) mg/dL Estimated GFR ML/MIN Glucose (74-106) mg/dL Calcium (8.4-10.2) mg/dL Total Bilirubin (0.2-1.3) mg/dL AST (17-59) U/L ALT (0-50) U/L Alkaline Phosphatase (38-126) U/L Troponin I 0.019 (0.000-0.033) ng/mL Serum Total Protein (6.3-8.2) g/dL Albumin (3.5-5.0) g/dL Influenza Type A Ag POSITIVE A (NEGATIVE) Influenza Type B Ag NEGATIVE (NEGATIVE) RSV (PCR) NEGATIVE (NEGATIVE) SARS-CoV-2 (PCR) NEGATIVE (NEGATIVE) - Radiology Impressions Radiology Exams & Impressions: Radiology Procedures Category Date Time Status CHEST 1 VIEW (PORTABLE) Stat Exams 07/13/24 12:21 Completed - Other Procedures and Tests Respiratory Therapy 07/13/24 11:30 Respiratory Therapy Assessment DAILY Assessment/Plan (1) Acute respiratory failure with hypoxia Current Visit: Yes Status: Acute Assessment & Plan: -2/2 to FluA/pneumonia/COPD exacerbation -+FluA -CXR reviewed demonstrating right upper zone patchy airspace opacity. -Supplemental oxygen with goal spo2 > 91% -Patient out of window for treatment with Tamiflu -Ceftriaxone/azithromycin/prednisone started in ED - will continue -RT eval and treat -DuoNebs/INH -CT chest w/ contrast Code(s): J96.01 - ACUTE RESPIRATORY FAILURE WITH HYPOXIA (2) Influenza A Current Visit: Yes Status: Acute Assessment & Plan: -see ARF Code(s): J10.1 - FLU DUE TO OTH IDENT INFLUENZA VIRUS W OTH RESP MANIFEST (3) COPD exacerbation Current Visit: Yes Status: Acute Assessment & Plan: -see ARF Code(s): J44.1 - CHRONIC OBSTRUCTIVE PULMONARY DISEASE W (ACUTE) EXACERBATION (4) Pneumonia Current Visit: Yes Status: Acute Qualifiers: Laterality: right Lung location: upper lobe of lung Assessment & Plan: -see ARF Code(s): J18.9 - PNEUMONIA, UNSPECIFIED ORGANISM (5) HTN (hypertension) Current Visit: Yes Status: Acute Assessment & Plan: -BP stable- continue home meds Code(s): I10 - ESSENTIAL (PRIMARY) HYPERTENSION (6) HLD (hyperlipidemia) Current Visit: Yes Status: Acute Assessment & Plan: -continue statin Code(s): E78.5 - HYPERLIPIDEMIA, UNSPECIFIED (7) Smoker Current Visit: Yes Status: Acute Assessment & Plan: -+50 years < 1 PPD -Advised cessation -Nicotine patch Code(s): F17.200 - NICOTINE DEPENDENCE, UNSPECIFIED, UNCOMPLICATED (8) Hypothyroid Current Visit: Yes Status: Acute Assessment & Plan: -continue levothyroxine VTE: Loveonox PPI: protonix Dispo: 1-2 days Code(s): E03.9 - HYPOTHYROIDISM, UNSPECIFIED Telemedicine Encounter - Telemedicine Encounter Telemedicine Encounter: "The entirety of this encounter was performed via Telemedicine" This visit was performed using real-time audio and video connection between my location and thepatients locationwith the assistance of a surrogateat the patients location. Written or verbal consent was obtained from the patient/guardian to perform this visit [facility] technology. Any patient questions regarding the telemedicine interaction were answered.
[2024-07-13] MEDS ORDERED: TYLENOL 325 MG PO PRN (16:51)
[2024-07-13] MEDS ORDERED: Zofran 4 MG/2 ML VIAL IV PRN (16:51)
[2024-07-13] MEDS: Nicoderm CQ 21 MG TOP SCH (17:40)
--- NOTE | 2024-07-13 19:16 | XRAY ---
CLINICAL HISTORY: shortness of breath COMPARISON: Same-day x-ray 07/13/2024 10:40:32 [employer]IATION NEUROPSYCHOLOGIST was reviewed. TECHNIQUE: Contiguous 3.[address] images of the chest were acquired with administration of intravenous contrast 80 ml isovue. Coronal and sagittal reconstructions were obtained. One of the following dose reduction techniques were utilized for this exam: Automated exposure control, adjustment of the mA and/or kV according to patient size, and use of iterative reconstruction FINDINGS: Lungs: No evidence of consolidation, collapse, or focal lesions. Small calcified nodule in the anterior segment of the right upper lobe. No ground-glass opacities or interstitial changes. No pleural effusion or pleural thickening. Mediastinum: No mediastinal mass or abnormal lymphadenopathy. Normal appearance of the thymus. Hilar Structures: Normal size and configuration, no enlargement. 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 Normal heart size and configuration. No pericardial effusion. Pulmonary Arteries: No evidence of pulmonary embolism. Normal size and course of the pulmonary arteries. Esophagus: Normal course and caliber. No masses or dilatation. Bones: No fractures or lytic/sclerotic lesions. Normal bone density and alignment. No evidence of rib fractures. Degenerative changes are seen. Calcified anterior longitudinal ligaments. Chest Wall: No masses or soft tissue abnormalities. Upper Abdomen: Small calcification in the spleen. Suspicious small nodules in the partially visualized adrenal glands. Thyroid: Normal size and morphology. No nodules or masses. IMPRESSION: 1. No evidence of pulmonary embolism. 2. The current study has no evidence of consolidation, collapse, or pleural effusion. 3. 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 Clinical correlation is suggested Electronically Signed by: Ezekiel Mathis MD. (07/13/2024 19:11:58 EST)
[2024-07-13] MEDS: DUONEB 0.5-3 MG/3 ml Neb IH SCH (19:27)
[2024-07-13] MEDS ORDERED: solu-MEDROL ONE (21:39)
[2024-07-13] MEDS ORDERED: Sterile H2O 10 ml IJ ONE (21:39)
[2024-07-13] MEDS: solu-MEDROL 40 MG, Sterile H2O 10 ml 1 ML IV SCH (21:43)
--- NOTE | 2024-07-14 05:33 | PCM.NOTE ---
Date and Time: 07/14/24529 Subjective Assessment: HPI: is a 68 year old male with a pmhx of smoker, hypothroidism, TIA, HLD, HTN, and COPD who presented to the ED 07/13/24 with complaints of a three day history of dyspnea, cough, headache, and fever. Patient states cough is productive with thick white sputum. Subjective fever/chills. Shortness of breath with chest tightness and wheezing - increased with exertion. Upon arrival to ED, vitals stable. EKG NS with no ischemia. Lab findings positive for FluA. CXR demonstrating right upper zone patchy airspace opacity. Patient treated in ED with ceftriaxone/azithromycin/prednisone/ duonebs. Admit for acute respiratory failure with hypoxia secondary to FluA and pneumonia. Objective Data Vital Signs: Vital Signs - 24 hr Temp Pulse Resp BP BP Pulse Ox 07/14/24 04:00 96.2 F 69 16 146/75 94 L 07/14/24 01:06 64 16 94 L 07/14/24 00:00 96.5 F 63 16 152/72 95 07/13/24 20:00 97.5 F 81 18 140/72 94 L 07/13/24 19:33 78 16 98 07/13/24 17:06 87 16 97 07/13/24 17:04 97.3 F 58 L 16 161/87 97 07/13/24 16:46 97 07/13/24 16:00 125/76 07/13/24 15:30 78 27 H 128/75 97 07/13/24 15:21 97 07/13/24 15:19 76 22 145/76 96 07/13/24 15:00 81 15 132/85 93 L 07/13/24 14:30 78 22 136/70 94 L 07/13/24 14:19 80 29 H 136/68 95 07/13/24 14:10 77 22 93 L 07/13/24 14:00 77 30 H 07/13/24 13:50 70 30 H 07/13/24 13:40 76 7 L 07/13/24 13:33 76 9 L 07/13/24 13:00 76 29 H 144/65 07/13/24 12:30 76 19 145/77 94 L 07/13/24 12:19 80 24 145/69 96 07/13/24 12:10 81 18 94 L 07/13/24 12:03 79 16 95 07/13/24 11:30 84 18 134/77 100 07/13/24 11:20 97 07/13/24 11:01 144/72 07/13/24 10:41 18 97 07/13/24 10:34 98.2 F 72 18 157/60 157/60 95 Pain Assessment - Last Documented Pain Intensity 2 Intake and Output: Intake & Output 07/11/24 07/12/24 07/13/24 07/14/24 11:59 11:59 11:59 11:59 Intake Total 440 Balance 440 Weight 84.9 kg 84.3 kg Lab Results: Lab Results-Last 24 Hours 07/13/24 07/13/24 07/13/24 Range/Units 11:50 11:50 11:50 WBC 4.4 (4.23-9.07) x10^3/uL RBC 4.43 L (4.63-6.08) x10^6/uL Hgb 13.9 (13.7-17.5) g/dL Hct 40.8 (40.1-51.0) % MCV 92.1 (79.0-92.2) fL MCH 31.4 (25.7-32.2) pg MCHC 34.1 (32.3-36.5) g/dL RDW 13.9 (11.6-14.4) % Plt Count 123 L (163-337) x10^3/uL MPV 10.1 (9.4-12.4) fL Gran % 62.4 (34.0-67.9) % Immature Gran % (Auto) 1.1 H (0.001-0.429) % Nucleat RBC Rel Count 0.0 (0.00-0.2) % Eos # (Auto) 0.10 (0.04-0.54) x10^3/uL Immature Gran # (Auto) 0.05 H (0.001-0.031) x10^3u/L Absolute Lymphs (auto) 0.95 L (1.32-3.57) x10^3/uL Absolute Monos (auto) 0.49 (0.30-0.82) x10^3/uL Absolute Nucleated RBC 0.00 (0.00-0.012) x10^3u/L Lymphocytes % 21.8 (21.8-53.1) % Monocytes % 11.3 (5.3-12.2) % Eosinophils % 2.3 (0.8-7.0) % Basophils % 1.1 (0.2-1.2) % Absolute Granulocytes 2.71 (1.78-5.38) x10^3/uL Basophils # 0.05 (0.01-0.08) x10^3/uL Sodium 142 (135-145) mmol/L Potassium 4.1 (3.5-5.1) mmol/L Chloride 104 (98-107) mmol/L Carbon Dioxide 26 (22-30) mmol/L Anion Gap 16.0 H (5-15) MEQ/L BUN 24 H (9-20) mg/dL Creatinine 1.12 (0.66-1.25) mg/dL Estimated GFR 72.0 ML/MIN Glucose 100 (74-106) mg/dL Calcium 9.0 (8.4-10.2) mg/dL Total Bilirubin 0.70 (0.2-1.3) mg/dL AST 36 (17-59) U/L ALT 35 (0-50) U/L Alkaline Phosphatase 105 (38-126) U/L Troponin I 0.018 (0.000-0.033) ng/mL Serum Total Protein 7.0 (6.3-8.2) g/dL Albumin 4.5 (3.5-5.0) g/dL Influenza Type A Ag (NEGATIVE) Influenza Type B Ag (NEGATIVE) RSV (PCR) (NEGATIVE) SARS-CoV-2 (PCR) (NEGATIVE) 07/13/24 07/13/24 07/13/24 Range/Units 12:12 13:20 19:54 WBC (4.23-9.07) x10^3/uL RBC (4.63-6.08) x10^6/uL Hgb (13.7-17.5) g/dL Hct (40.1-51.0) % MCV (79.0-92.2) fL MCH (25.7-32.2) pg MCHC (32.3-36.5) g/dL RDW (11.6-14.4) % Plt Count (163-337) x10^3/uL MPV (9.4-12.4) fL Gran % (34.0-67.9) % Immature Gran % (Auto) (0.001-0.429) % Nucleat RBC Rel Count (0.00-0.2) % Eos # (Auto) (0.04-0.54) x10^3/uL Immature Gran # (Auto) (0.001-0.031) x10^3u/L Absolute Lymphs (auto) (1.32-3.57) x10^3/uL Absolute Monos (auto) (0.30-0.82) x10^3/uL Absolute Nucleated RBC (0.00-0.012) x10^3u/L Lymphocytes % (21.8-53.1) % Monocytes % (5.3-12.2) % Eosinophils % (0.8-7.0) % Basophils % (0.2-1.2) % Absolute Granulocytes (1.78-5.38) x10^3/uL Basophils # (0.01-0.08) x10^3/uL Sodium (135-145) mmol/L Potassium (3.5-5.1) mmol/L Chloride (98-107) mmol/L Carbon Dioxide (22-30) mmol/L Anion Gap (5-15) MEQ/L BUN (9-20) mg/dL Creatinine (0.66-1.25) mg/dL Estimated GFR ML/MIN Glucose (74-106) mg/dL Calcium (8.4-10.2) mg/dL Total Bilirubin (0.2-1.3) mg/dL AST (17-59) U/L ALT (0-50) U/L Alkaline Phosphatase (38-126) U/L Troponin I 0.019 0.012 (0.000-0.033) ng/mL Serum Total Protein (6.3-8.2) g/dL Albumin (3.5-5.0) g/dL Influenza Type A Ag POSITIVE A (NEGATIVE) Influenza Type B Ag NEGATIVE (NEGATIVE) RSV (PCR) NEGATIVE (NEGATIVE) SARS-CoV-2 (PCR) NEGATIVE (NEGATIVE) Radiology Exams: Radiology Procedures Category Date Time Status CHEST 1 VIEW (PORTABLE) Stat Exams 07/13/24 12:21 Completed CHEST WITH CONTRAST [CT] Urgent Exams 07/13/24 18:10 Completed Assessment/Plan (1) Acute respiratory failure with hypoxia Current Visit: Yes Status: Acute Assessment & Plan: -2/2 to FluA/pneumonia/COPD exacerbation -+FluA -CXR reviewed demonstrating right upper zone patchy airspace opacity. 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 with about 50% stenosis, as well as in the included abdominal aorta with 50-70% stenosis -Oxygen titrated to RA Code(s): J96.01 - ACUTE RESPIRATORY FAILURE WITH HYPOXIA (2) Influenza A Current Visit: Yes Status: Acute Assessment & Plan: -see ARF Code(s): J10.1 - FLU DUE TO OTH IDENT INFLUENZA VIRUS W OTH RESP MANIFEST (3) COPD exacerbation Current Visit: Yes Status: Acute Assessment & Plan: -see ARF Code(s): J44.1 - CHRONIC OBSTRUCTIVE PULMONARY DISEASE W (ACUTE) EXACERBATION (4) Pneumonia Current Visit: Yes Status: Acute Qualifiers: Laterality: right Lung location: upper lobe of lung Assessment & Plan: -see ARF Code(s): J18.9 - PNEUMONIA, UNSPECIFIED ORGANISM (5) HTN (hypertension) Current Visit: Yes Status: Acute Assessment & Plan: -BP stable- continue home meds Code(s): I10 - ESSENTIAL (PRIMARY) HYPERTENSION (6) HLD (hyperlipidemia) Current Visit: Yes Status: Acute Assessment & Plan: -continue statin Code(s): E78.5 - HYPERLIPIDEMIA, UNSPECIFIED (7) Smoker Current Visit: Yes Status: Acute Assessment & Plan: -+50 years < 1 PPD -Advised cessation -Nicotine patch Code(s): F17.200 - NICOTINE DEPENDENCE, UNSPECIFIED, UNCOMPLICATED (8) Hypothyroid Current Visit: Yes Status: Acute Assessment & Plan: -continue levothyroxine Mural thrombus -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 with about 50% stenosis, as well as in the included abdominal aorta with 50-70% stenosis VTE: Loveonox PPI: protonix Dispo: 1-2 days Code(s): J96.01 - ACUTE RESPIRATORY FAILURE WITH HYPOXIA (2) Influenza A Current Visit: Yes Status: Acute Code(s): J10.1 - FLU DUE TO OTH IDENT INFLUENZA VIRUS W OTH RESP MANIFEST (3) COPD exacerbation Current Visit: Yes Status: Acute Code(s): J44.1 - CHRONIC OBSTRUCTIVE PULMONARY DISEASE W (ACUTE) EXACERBATION (4) Pneumonia Current Visit: Yes Status: Acute Qualifiers: Laterality: right Lung location: upper lobe of lung Code(s): J18.9 - PNEUMONIA, UNSPECIFIED ORGANISM (5) HTN (hypertension) Current Visit: Yes Status: Acute Code(s): I10 - ESSENTIAL (PRIMARY) HYPERTENSION (6) HLD (hyperlipidemia) Current Visit: Yes Status: Acute Code(s): E78.5 - HYPERLIPIDEMIA, UNSPECIFIED (7) Smoker Current Visit: Yes Status: Acute Code(s): F17.200 - NICOTINE DEPENDENCE, UNSPECIFIED, UNCOMPLICATED (8) Hypothyroid Current Visit: Yes Status: Acute Code(s): E03.9 - HYPOTHYROIDISM, UNSPECIFIED (9) Mural thrombus of heart Current Visit: Yes Status: Acute Code(s): I51.3 - INTRACARDIAC THROMBOSIS, NOT ELSEWHERE CLASSIFIED
[2024-07-14 05:43] LABS: Absolute Neutrophil Ct (ANC) 4.28 x10^3/uL (1.78-5.38); BASOPHIL % 0.2 % (0.2-1.2); Basophil (Absolute #) 0.01 x10^3/uL (0.01-0.08); Eosinophil % 1.6 % (0.8-7.0); Eosinophil (Absolute #) 0.08 x10^3/uL (0.04-0.54); Hemoglobin 12.7 g/dL (13.7-17.5); IMMATURE GRAN # 0.02 x10^3u/L (0.001-0.031); IMMATURE GRAN % 0.4 % (0.001-0.429); Lymphocyte (Absolute #) 0.57 x10^3/uL (1.32-3.57); Lymphocytes % 11.1 % (21.8-53.1); Mean Cell Volume 90.7 fL (79.0-92.2); Mean Corpuscular Hemoglobin 31.1 pg (25.7-32.2); Mean Corpuscular Hgb Concent. 34.3 g/dL (32.3-36.5); Mean Platelet Volume 10.4 fL (9.4-12.4); Monocyte (Absolute #) 0.18 x10^3/uL (0.30-0.82); Monocytes % 3.5 % (5.3-12.2); Neutrophil % 83.2 % (34.0-67.9); Platelet Count 114 x10^3/uL (163-337); Red Blood Count 4.08 x10^6/uL (4.63-6.08); Red Cell Distribution Width 13.5 % (11.6-14.4); White Blood Count 5.1 x10^3/uL (4.23-9.07)
[2024-07-14 06:01] LABS: ALBUMIN 4.2 g/dL (3.5-5.0); ANION GAP 17.6 MEQ/L (5-15); BILIRUBIN,TOTAL 0.6 mg/dL (0.2-1.3); Calcium 8.7 mg/dL (8.4-10.2); Creatinine 1 0.81 mg/dL (0.66-1.25); EST GLOMERULAR FILTRATION RATE 96.6 ML/MIN; Potassium 4.4 mmol/L (3.5-5.1); Total Protein 6.8 g/dL (6.3-8.2)
[2024-07-14 08:13] LABS: Slide Review 1 YES
[2024-07-14] MEDS: ENOXAPARIN SODIUM SQ SCH (09:21)
[2024-07-14] MEDS: Protonix 40MG Tablet PO SCH (09:21)
[2024-07-14] MEDS: Zithromax 500 MG/ 250 ML NaCl Premix 500 MG/250 ML IVPB IV SCH (09:23)
[2024-07-14] MEDS: ROCEPHIN 1 GM / 100 ML NaCl 1 GM/100 ML IVPB IV SCH (10:40)
--- NOTE | 2024-07-14 14:38 | PCM.DS ---
Discharge Summary Date of Admission: 07/13/24 16:13 Date of Discharge: 07/14/24 Admitting Physician: CONSUELO HASTINGS MD Primary Care Provider: LOCO FORD Allergies Allergies No Known Drug Allergies Allergy (Verified 07/13/24 10:33) Hospital Summary - Hospital Course Hospital Course: is a 68 year old male with a pmhx of smoker, hypothroidism, TIA, HLD, HTN, and COPD who presented to the ED 07/13/24 with complaints of a three day history of dyspnea, cough, headache, and fever. Patient states cough is productive with thick white sputum. Subjective fever/chills. Shortness of breath with chest tightness and wheezing - increased with exertion. Upon arrival to ED, vitals stable. EKG NS with no ischemia. Lab findings positive for FluA. CXR demonstrating right upper zone patchy airspace opacity. Patient treated in ED with ceftriaxone/azithromycin/prednisone/ duonebs. Admit for acute respiratory failure with hypoxia secondary to FluA and pneumonia. Dyspnea and cough improved. Patient now on RA. CT chest showing NO PE. There is a mural thrombus with ulcerations at the descending thoracic aorta with about 50% stenosis, as well as in the included abdominal aorta with 50-70% stenosis. Transfer was initiated for patient for evaluation of the mural thrombus. Vascular surgery, Dr. Middleton from [facility] discussed patient's case and stated patient does not need surgical intervention/transfer at this point. Patient with normal LE pulses. No need for anticoagulation. He is to continue on his home aspirin 81mg. He has been advised follow up OP with his application security specialist to follow. Patient agreeable to plan. Will discharge on cefuroxime and prednisone. Discharge Note New Diagnosis: FluA/ pneuomonia New Medications: cefuroxime/prednisone Follow Up: cardiology/pcp I spent 35 minutes [id number] with the patient on the day of discharge performing discharge exam, discussing hospital stay and discharge instructions with patient and caregivers, preparation of discharge records, prescriptions & referral forms and addressing any questions/concerns the patient had as documented above. - Vitals & Intake/Output Vital Signs: Vital Signs Temperature 97.2 F 07/14/24 11:59 Pulse Rate 63 07/14/24 13:09 Respiratory Rate 16 07/14/24 13:09 Blood Pressure 157/85 07/14/24 11:59 O2 Sat by Pulse Oximetry 97 07/14/24 13:09 Intake & Output: Intake & Output 07/12/24 07/13/24 07/14/24 07/15/24 11:59 11:59 11:59 11:59 Intake Total 560 240 Balance 560 240 Weight 84.9 kg 84.3 kg - Lab Result Diagrams: 07/14/24 04:20 07/14/24 04:20 Lab Results-Last 24 Hrs: Lab Results-Last 24 Hours 07/13/24 07/14/24 07/14/24 Range/Units 19:54 04:20 04:20 WBC 5.1 (4.23-9.07) x10^3/uL RBC 4.08 L (4.63-6.08) x10^6/uL Hgb 12.7 L (13.7-17.5) g/dL Hct 37.0 L (40.1-51.0) % MCV 90.7 (79.0-92.2) fL MCH 31.1 (25.7-32.2) pg MCHC 34.3 (32.3-36.5) g/dL RDW 13.5 (11.6-14.4) % Plt Count 114 L (163-337) x10^3/uL MPV 10.4 (9.4-12.4) fL Gran % 83.2 H (34.0-67.9) % Immature Gran % (Auto) 0.4 (0.001-0.429) % Nucleat RBC Rel Count 0.0 (0.00-0.2) % Eos # (Auto) 0.08 (0.04-0.54) x10^3/uL Immature Gran # (Auto) 0.02 (0.001-0.031) x10^3u/L Absolute Lymphs (auto) 0.57 L (1.32-3.57) x10^3/uL Absolute Monos (auto) 0.18 L (0.30-0.82) x10^3/uL Absolute Nucleated RBC 0.00 (0.00-0.012) x10^3u/L Lymphocytes % 11.1 L (21.8-53.1) % Monocytes % 3.5 L (5.3-12.2) % Eosinophils % 1.6 (0.8-7.0) % Basophils % 0.2 (0.2-1.2) % Absolute Granulocytes 4.28 (1.78-5.38) x10^3/uL Basophils # 0.01 (0.01-0.08) x10^3/uL Sodium 138 (135-145) mmol/L Potassium 4.4 (3.5-5.1) mmol/L Chloride 104 (98-107) mmol/L Carbon Dioxide 21 L (22-30) mmol/L Anion Gap 17.6 H (5-15) MEQ/L BUN 23 H (9-20) mg/dL Creatinine 0.81 (0.66-1.25) mg/dL Estimated GFR 96.6 ML/MIN Glucose 153 H (74-106) mg/dL Calcium 8.7 (8.4-10.2) mg/dL Total Bilirubin 0.60 (0.2-1.3) mg/dL AST 35 (17-59) U/L ALT 33 (0-50) U/L Alkaline Phosphatase 83 (38-126) U/L Troponin I 0.012 (0.000-0.033) ng/mL Serum Total Protein 6.8 (6.3-8.2) g/dL Albumin 4.2 (3.5-5.0) g/dL Slides for Path Review YES - Radiology Exams Ordered Rad Exams-Entire Visit: Radiology Procedures Category Date Time Status CHEST 1 VIEW (PORTABLE) Stat Exams 07/13/24 12:21 Completed CHEST WITH CONTRAST [CT] Urgent Exams 07/13/24 18:10 Completed - Procedures and Test Procedures and Tests throughout Hospitalization: Therapy Orders & Screens 07/13/24 11:30 Respiratory Therapy Assessment DAILY Comment: 07/13/24 16:51 Respiratory Therapy Consult ONCE Comment: Reason For Exam: Diagnosis: Influenza A/ Copd exacerbation/pneumonia 07/13/24 17:05 Oxygen NASAL CANNULA 2 lpm Comment: Diagnosis: Influenza A/ Copd exacerbation/pneumonia 07/13/24 17:23 Smoking Cessation Education ONCE Comment: Diagnosis: Influenza A/ Copd exacerbation/pneumonia Smoking Status: Current every day smoker How long have you smoked: 50 years Have you smoked in the past 12 months: Yes Do you dip or chew tobacco: No Discharge Exam General Appearance: no apparent distress Neurologic Exam: alert, oriented x 3, cooperative Eye Exam: PERRL Ears, Nose, Throat Exam: normal ENT inspection Neck Exam: normal inspection Respiratory Exam: wheezing Cardiovascular Exam: regular rate/rhythm, normal heart sounds Gastrointestinal/Abdomen Exam: soft, normal bowel sounds Male Genitalia Exam: deferred Rectal Exam: deferred Back Exam: normal inspection Extremity Exam: normal inspection Skin Exam: normal color Final Diagnosis/Problem List - Final Discharge Diagnosis/Problem (1) Acute respiratory failure with hypoxia Current Visit: Yes Status: Resolved Code(s): J96.01 - ACUTE RESPIRATORY FAILURE WITH HYPOXIA (2) Influenza A Current Visit: Yes Status: Acute Code(s): J10.1 - FLU DUE TO OTH IDENT INFLUENZA VIRUS W OTH RESP MANIFEST (3) COPD exacerbation Current Visit: Yes Status: Resolved Code(s): J44.1 - CHRONIC OBSTRUCTIVE PULMONARY DISEASE W (ACUTE) EXACERBATION (4) Pneumonia Current Visit: Yes Status: Acute Code(s): J18.9 - PNEUMONIA, UNSPECIFIED ORGANISM (5) HTN (hypertension) Current Visit: Yes Status: Chronic Code(s): I10 - ESSENTIAL (PRIMARY) HYPERTENSION (6) HLD (hyperlipidemia) Current Visit: Yes Status: Chronic Code(s): E78.5 - HYPERLIPIDEMIA, UNSPECIFIED (7) Smoker Current Visit: Yes Status: Chronic Code(s): F17.200 - NICOTINE DEPENDENCE, UNSPECIFIED, UNCOMPLICATED (8) Hypothyroid Current Visit: Yes Status: Chronic Code(s): E03.9 - HYPOTHYROIDISM, UNSPECIFIED (9) Mural thrombus of heart Current Visit: Yes Status: Chronic Code(s): I51.3 - INTRACARDIAC THROMBOSIS, NOT ELSEWHERE CLASSIFIED - Discharge Discharge Date: 07/14/24 Disposition: Home, Self-Care Condition: Stable Prescriptions: New cefuroxime axetiL [Cefuroxime] 500 mg PO BID 7 Days #14 tablet Prednisone 20 mg [Deltasone 20 mg] 20 mg PO BID 5 Days #10 tablet PANTOPRAZOLE 40 mg Tablet [Protonix 40MG Tablet] 40 mg PO DAILY 30 Days #30 tab Aspirin EC 81 mg [Ecotrin 81 mg] 81 mg PO DAILY 30 Days #30 tablet Continue Levothyroxine Sodium 1 tab PO HS Isosorbide Mononitrate 30 mg [Imdur 30 MG] 1 tab PO HS Sildenafil Citrate [Viagra] 100 mg PO HS Tizanidine HCl 4 mg [Zanaflex 4 MG] 4 mg PO HS Gabapentin [Neurontin ] 600 mg PO HS Amlodipine Besylate/Benazepril [Amlodipine-Benazepril 10-20 mg] 1 each PO HS Rosuvastatin Calcium 20 mg PO HS Golimumab [Simponi] 50 mg SQ UD Follow up with: LOCO FORD MD [Primary Care Provider] -
[2024-07-14 17:22] VITALS: BP 149/67; PULSE 64; RESP 17; TEMP 97.4; O2SAT 96
== END 2024-07-14 16:30 | disposition home or self-care (01) ==
LOC: ED 10:26 → MED SURG 16:13
PROVIDERS: ADMIT Internal Medicine; ATTEND Internal Medicine
DX: J96.01 Acute respiratory failure with hypoxia (principal); J10.1 Influenza due to other identified influenza virus with other respiratory manifestations; J44.1 Chronic obstructive pulmonary disease with (acute) exacerbation; J18.9 Pneumonia, unspecified organism; I10 Essential (primary) hypertension; E78.5 Hyperlipidemia, unspecified; F17.200 Nicotine dependence, unspecified, uncomplicated; E03.9 Hypothyroidism, unspecified; I51.3 Intracardiac thrombosis, not elsewhere classified; Z79.899 Other long term (current) drug therapy
CPT/HCPCS: 0241U; 36415; 71045; 71260; 80053; 84484; 85025; 87040; 93005; 93041; 94640; 94760; 99285; 96365; 96375; J0456; J0696; J1650; J2919; Q3014; A9270-GY